=== PATIENT | female | born 1975 | race Caucasian/White ===

== ENCOUNTER 2020-03-29 06:52 | Day surgery (SDC) | payer BC ==
[~2020-03-29] VITALS: Ht 160 cm; Wt 68.0 kg
[~2020-03-29 06:52] MED LIST: 5-HTP100 MG PO; ALPRAZOLAM 0.50.5 M1 PO; AMINO ACID1 EACH PO; ANDROGEN PO; BIOIDENTICAL HORMONE IM; BUPROPION XL300 MG PO; CYTOMEL 5MCG TA5 MCG PO; DIAZEPAM 10 MG10 M2 PO; FISH OIL 1,0001 EAC9 PO; GLUCOPHAGE1000 MG PO; HORMONE TROCHE; HYDROCODON-ACE1 EAC7 PO; IBUPROFEN200 M1 PO; MAGNESIUM250 M1 PO; METHYL CPG PO; METHYL PRO PO; MULTIVITAMINS1 EAC7 PO; NATURE-THROID65 MG PO; NATURE-THYROID PO; NEURONTIN 300300 M1 PO; PROGESTERONE100 MG PO; PROGESTERONE200 MG PO; ROBAXIN 750 MG750 M1 PO; TRAMADOL 50 MG50 MG PO; VITAMIN D3125 MC1 PO; [UNRECOGNIZED DRUG - OTHER] PO; [UNRECOGNIZED DRUG - OTHER] PO; [UNRECOGNIZED DRUG - OTHER] PO
[2020-03-29 07:49] VITALS: BP 120/60
[2020-03-29 10:59] VITALS: BP 120/60
--- NOTE | 2020-03-29 12:11 | O ---
[address] [address] OPERATIVE REPORT Name: EVELIO GALAVIZ Room #: 150-2 [facility].#: [id number] Admission: 03/29/20 Attend Phys: Jose Evans MD Discharge: Date of : 75 Report #: [id number] THIS REPORT FOR: cc: Paul Veronica MD, Douglas MD McCabe,Jose Garcia MD ~ CC: Paul Evans DATE OF SERVICE: 03/29/2020 SERVICE: Orthopedics. FACILITY: [place]. SURGEON: Jose Evans MD BAG LOADER MACHINE OPERATOR: Sunita Crawley NP. INDICATION FOR BAG LOADER MACHINE OPERATOR: Extremity positioning, suture management, arthroscope management, assistance with repair. PREOPERATIVE DIAGNOSES: 1. Right hip pain. 2. Right hip labral tear. 3. Right hip impingement syndrome. POSTOPERATIVE DIAGNOSES: 1. Right hip pain. 2. Right hip labral tear. 3. Right hip impingement syndrome. PROCEDURES: 1. Right hip arthroscopic labral repair. 2. Right hip arthroscopic Cam osteoplasty. COMPLICATIONS: None. DRAINS: None. SPECIMENS: None. ANESTHESIA: General with regional. FINDINGS: 1. Hazel CinchLock suture anchor x 2 for labral repair. [address] [address] OPERATIVE REPORT Name: EVELIO GALAVIZ Room #: 150-2 [facility]#: [id number] Admission: 03/29/20 Attend Phys: Jose Evans MD Discharge: Date of : 75 Report #: [id number] 2. 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 HISTORY: The patient is a 45-year-old female with a couple year history of progressive persistent right hip pain that was affecting ADLs and failed conservative treatment throughout period including rest, activity modifications, physical therapy, oral medicines and injections. She had imaging consistent with femoroacetabular impingement with an alpha angle of approximately 52 degrees, which was seen to be in the 55 degree range intraoperatively. She had a labral tear on her MRI. Risks, benefits, alternatives, and indication of surgery discussed with her in detail preoperatively. Risks include but not limited to pain, bleeding, infection, injury to nerves or blood vessels, persistent pain despite surgical intervention, failure of any repairs, progression of any preexisting chondral injury, stiffness, need for further surgery as well as complications related to anesthesia. Her preoperative imaging also demonstrated no signs of arthritis. She had a Tonnis grade of 0 and she had positive pain response to her intra-articular injection. PROCEDURE IN DETAIL: After right lower extremity was correctly identified in the preoperative holding area as the operative extremity, the patient underwent placement of single shot regional nerve block. She was then taken to the operating room where general anesthesia was induced without complication. She was padded appropriately. Prophylactic antibiotics were administered at appropriate time. Right hip femoral head and neck junction was evaluated under C-arm fluoroscopy. We identified the alpha angle in the 55 degree range and the right hip was then prepped and draped in standard sterile fashion. Traction was applied to the right leg. Anterolateral viewing portal was then established followed by anteromedial working portal. Diagnostic arthroscopy revealed the above findings. There was a significant amount of synovitis within the hip anteriorly and laterally and this was treated with partial synovectomy with the shaver. This will be the indication for postoperative continuous passive motion machine usage in order to decrease the risk of adhesions and stiffness as these can be reasons for reoperation in this patient population. Capsule reflected off the dorsal side of the labrum allowing access to the acetabular rim. The labrum had a clear full thickness labral tear with chondral labral junction fraying and granulation tissue noted. The acetabular rim was gently abraded with the bur. We carefully evaluated the subspine region and confirmed that there was no source of extraarticular impingement. The bur was used as stated to abrade the acetabular rim and then labral refixation was performed with Hazel CinchLock suture anchor x 2, which provided good apposition of the labrum against the acetabular rim and improved the stability. The probe was used to assess and confirm a stable labrum and chondral labral junction. Shaver was used to then debride the frayed tissue at the chondral [address] [address] OPERATIVE REPORT Name: EVELIO GALAVIZ Room #: 150-2 [facility]..#: [id number] Admission: 03/29/20 Attend Phys: Jose Evans MD Discharge: Date of : 75 Report #: [id number] labral junction and the intra-articular component of the work was completed. Traction was let down. Hip was flexed up. Attention turned towards the peripheral compartment. The transverse capsulotomy was extended down the neck partially in a T fashion and then the bur was used to perform the Cam osteoplasty. We removed the instruments, brought the C-arm in and then reassessed the femoral head and neck junction. I identified some additional bone that needed to be resected distally and then placed the instruments back in the hip and used the bur to complete the Cam osteoplasty under direct visualization. The bony debris was then lavaged out of the hip. The instruments were removed. The C-arm was brought in again and took final x-rays to confirm adequate Cam resection at this point. Final x-rays were taken and then the instruments were placed back into the hip and the T-shaped capsulotomy was closed with a total of four #2 Vicryl sutures. Good capsular closure was achieved. The instruments were removed. Portal sites were closed. Sterile dressing was applied followed by PolarCare device. The patient was awakened from anesthesia and taken to recovery room in stable condition. No complications. All counts were recorded as correct. <ELECTRONICALLY SIGNED> By: Jose Evans MD 03/29/20 1211 [id number] Jose Evans MD /nt
== END 2020-03-29 10:34 | disposition home or self-care (01) ==
LOC: OR 06:52 → TBA 06:52 → OR 09:47
PROVIDERS: ATTEND Orthopaedic Surgery Sports Medicine
DX: M25.551 Pain in right hip (principal); S73.101A Unspecified sprain of right hip, initial encounter; M25.851 Other specified joint disorders, right hip; E03.9 Hypothyroidism, unspecified; F41.9 Anxiety disorder, unspecified; Z11.59 Encounter for screening for other viral diseases; Z98.890 Other specified postprocedural states; Z79.899 Other long term (current) drug therapy; X58.XXXA Exposure to other specified factors, initial encounter; Y93.89 Activity, other specified; Y92.89 Other specified places as the place of occurrence of the external cause; Y99.8 Other external cause status
CPT/HCPCS: 50010; 50101; 50386; 51320; 51538; 52001; 52282; 52304; 52313; 56524; 56527; 57092; 57103; 62110; 62900; 64042; 70005